=== PATIENT | male | born 1950 | race Caucasian/White ===

== ENCOUNTER 2017-07-04 12:59 | Day surgery (SDC) | payer OTHER ==
[~2017-07-04] VITALS: Ht 170.2 cm; Wt 81.8 kg
[~2017-07-04 12:59] MED LIST: ALLO100 PO; ASPI81EC PO; ATEN50 PO; Aspir 8181 MG; Bystolic2.5 MG; HYDCHL12.5 PO; LEVO750 PO; Norco 5-325 Ta1 EACH PO; OMEP20ER PO; Omeprazole20 M1; ROSU10TA; ROSU5 PO; TAMS.4ER
== END 2017-07-04 14:55 | disposition home or self-care (01) ==
LOC: ORSCSDS 12:59
PROVIDERS: Internal Medicine Gastroenterology
PROC: 0DBM8ZX Excision of Descending Colon, Via Natural or Artificial Opening Endoscopic, Diagnostic (ICD-10-PCS; principal; 2017-07-04 14:15)
PROC: 0DBN8ZX Excision of Sigmoid Colon, Via Natural or Artificial Opening Endoscopic, Diagnostic (ICD-10-PCS; principal; 2017-07-04 14:15)
DX: Z12.11 Encounter for screening for malignant neoplasm of colon (principal); D12.4 Benign neoplasm of descending colon; K63.5 Polyp of colon; K64.8 Other hemorrhoids; K57.30 Diverticulosis of large intestine without perforation or abscess without bleeding; Z86.010 Personal history of colon polyps; E78.2 Mixed hyperlipidemia; I10 Essential (primary) hypertension; Z87.891 Personal history of nicotine dependence; K21.9 Gastro-esophageal reflux disease without esophagitis; Z79.82 Long term (current) use of aspirin; Z79.899 Other long term (current) drug therapy
CPT/HCPCS: 88305

== ENCOUNTER 2024-12-06 12:00 | Observation (INO) | payer OTHER ==
[~2024-12-06] VITALS: Ht 170.2 cm; Wt 81.3 kg
[2024-12-06 16:01] LABS: BASOPHILS ABSOLUTE AUTO 0.05 K/mm3 (0.00-0.23); BASOPHILS PERCENT AUTO 1 % (0-2); EOSINOPHILS PERCENT AUTO 2 % (0-6); Hematocrit 48.4 % (37.0-53.0); Hemoglobin 16.5 g/dL (13.5-17.5); IMMATURE GRAN ABSOLUTE AUTO 0.03 K/mm3 (0.00-0.10); IMMATURE GRAN PERCENT AUTO 1 % (0-1); LYMPHOCYTES ABSOLUTE AUTO 0.95 K/mm3 (0.84-5.20); LYMPHOCYTES PERCENT AUTO 16 % (21-46); MONOCYTES ABSOLUTE AUTO 0.58 K/mm3 (0.16-1.47); MONOCYTES PERCENT AUTO 10 % (4-13); Mean Corpuscular HGB 30.2 pg (26.0-34.0); Mean Corpuscular HGB Conc 34.1 g/dL (31.5-36.5); Mean Corpuscular Volume 89 fL (80-100); NEUTROPHILS ABSOLUTE AUTO 4.12 K/mm3 (1.96-9.15); NEUTROPHILS PERCENT AUTO 71 % (41-73); Platelet Count 129 K/mm3 (150-400); RDW Coefficient Variation 13.8 % (11.7-14.2); RDW Standard Deviation 44.5 fL (35.1-46.3); Red Blood Cell Count 5.46 M/mm3 (4.30-5.90); White Blood Cell Count 5.83 K/mm3 (4.00-11.30)
[2024-12-06 16:02] LABS: Mean Platelet Volume 14.8 fL (9.1-12.4)
[2024-12-06 16:10] LABS: Albumin, Blood 3.4 g/dL (3.4-5.0); Albumin/Globulin Ratio 0.7 (0.8-1.8); Bilirubin, Total 1.8 mg/dL (0.1-1.0); Calcium, Blood 9.1 mg/dL (8.5-10.1); Creatinine, Blood 0.9 mg/dL (0.60-1.20); Globulin, Blood 4.8 g/dL (2.2-4.0); Potassium, Blood 3.8 mmol/L (3.5-5.5); Total Protein, Blood 8.2 g/dL (6.4-8.2)
[2024-12-06] MEDS ORDERED: ZOCOR20 MG PO (16:42)
[2024-12-06] MEDS ORDERED: Magnesium Hydroxide Conc 10 ML UDC PO PRN (17:10)
--- NOTE | 2024-12-06 17:47 | NUR ---
RECEIVED REPORT FROM DIRECT MAIL MANAGER; NOTICED THAT NO MEDICATIONS WERE GIVEN TO THE PATIENT FOR POSSIBLE TIA. PER REPORT PATIENT HASN'T RECEIVED ANY MEDICATIONS. CALL MADE TO DR. LAWRENCE TO INQUIRE ABOUT THE PATIENT NOT GETTING ASPIRIN SINCE BEING IN THE ER AND THAT IT IS ORDERED FOR 12/07/[address] LAWRENCE, PATIENT TO GET A DOSE NOW AND TO RESUME DAILY THEREAFTER; WILL PLACE ORDERS FOR ASPIRIN 325 MG NOW.
[2024-12-06] MEDS ORDERED: Aspirin 325 MG Tab PO ONE (17:50)
[2024-12-06 18:03] VITALS: BP 101/81
--- NOTE | 2024-12-06 18:35 | NUR ---
ADMISSION NOTE: PATIENT ARRIVED AT THE UNIT AT 1800 VIA WHEELCHAIR, WAS ABLE TO SELF TRANSFER ONTO THE BED WITHOUT DIFFICULTY. PATIENT SETTLED IN ROOM, ASSESSED, AND HAD PT CHANGE INTO HOSPITAL GOWN. AWAITING TELE. PATIENT A&OX4/INDEPENDENT;DENIES ANY NUMBNESS/WEAKNESS IN EXTREMITIES. PATIENT GIVEN ASPIRIN 325 MG; CALL MADE TO DR. LAWRENCE TO OKAY HOME MED SIMVASTATIN VERSUS SUB LIPITOR DUE TO CAUSING JOINT PAIN IN THE PAST. OKAY TO PLACE HOME MED ORDER. PATIENT'S STACY WILL BRING. PATIENT IN BED, ALERT, CALL LIGHT WITHIN REACH, NO SIGNS OR SYMPTOMS OF DISTRESS, PLAN OF CARE ONGOING; MRI HEAD AND ECHO PENDING. RESULTS FROM CAROTID US PENDING; COMPLETED PRIOR TO COMING UP TO UNIT PER PATIENT.
[2024-12-06 19:54] VITALS: BP 158/87
[2024-12-06] MEDS ORDERED: ALLO100 PO (20:39)
[2024-12-06] MEDS ORDERED: Atorvastatin 10 MG Tab PO SCH (21:00)
[2024-12-06] MEDS ORDERED: SIMVASTATIN 10 MG TABLET PO SCH (21:00)
[2024-12-06 23:48] VITALS: BP 125/69
[2024-12-07 04:21] VITALS: BP 131/74
[2024-12-07] MEDS ORDERED: Omeprazole 20 MG CapCR PO SCH (06:00)
--- NOTE | 2024-12-07 06:26 | NUR ---
SHIFT SUMMARY: Pt is admitted for HX of CVA and is a full code. Is alert and able to make needs known. ADLs have been IND. denies pain or discomfort when asked. telly noted sinus in the 50s with no events. No SX of CVA noted after coming to the floor. Was reported by day shift nurse that they had some numbness in the hands by the time they came to the floor. During report PT stated the numbness was almost gone. And when asked later in the shift he stated it was gone. No other issues were reported.
[2024-12-07 06:36] LABS: CHOL/HDL RATIO 2.6; Cholesterol 163 mg/dL (50-200); HDL Cholesterol 62 mg/dL (>39); LDL/HDL RATIO 1.3; Low Density Lipoprotein Chol 79 mg/dL (0-110); Triglycerides 108 mg/dL (30-160); Very Low Density Lipoprot Chol 21 mg/dL (6-32)
[2024-12-07 07:17] VITALS: BP 128/77
[2024-12-07] MEDS ORDERED: Aspirin 325 MG Tab PO SCH (09:00)
[2024-12-07] MEDS ORDERED: HydroCHLOROthiazide 25 mg Tab PO SCH (09:00)
[2024-12-07 15:03] VITALS: BP 140/89
--- NOTE | 2024-12-07 15:54 | NUR ---
ASSUMED CARE OF PT A/O X 4 VERY PLEASENT, REPORT ALL NUERO SYMPTOMS GONE. MRI ORDER FOR THIS MORNING, PT REMAINS IND IN ROOM AND ABLE TO MAKE NEEDS KNOWN.
--- NOTE | 2024-12-07 15:55 | NUR ---
0930 PT TO MRI AND BACK TARA WELL AND HAD NO ISSUES. AWAITNG ECHO FOR POSSIBLE DISCHARGE..
--- NOTE | 2024-12-07 15:56 | NUR ---
1520 ECHO BEING DONE, NO CHANGE IN CONDITION AND IS HOPING TO GO HOME IF ECHO IS READ. WILL CONT TO [facility] , NO CHASNGE IN CONDITION.
[2024-12-07] MEDS ORDERED: Clopidogrel Bisulfate 75 MG Tab PO SCH (17:00)
--- NOTE | 2024-12-07 17:49 | NUR ---
MRI RESULTS BACK, MD IN TO SPEAK WITH PT ABOUT RESULTS AND PT WILL BE STAYING THE NIGHT FOR ZYOPATCH AND ECHO READING. PT OK WITH STAYING HAS CALL LIGHT WITHIN REACH AND ABLE TO MAKE NEEDS KNOW.
[2024-12-07 19:30] VITALS: BP 158/92
[2024-12-08 03:13] VITALS: BP 140/85
[2024-12-08 07:23] VITALS: BP 144/84
[2024-12-08 15:00] VITALS: BP 133/77
--- NOTE | 2024-12-08 17:32 | NUR ---
ASSUMED CARE OF PT PT DOING GREAT TODAY PER PT, A/O X4 AND WAS EXPECTING TO GO HOME TODAY BUT WHEN SPOKE WITH DR RAMIRES PT ZYOPATCH IS UNABLE TO BE APPLIED TODAY DUE TO NOT BEING OPEN. PT GIVEN OPTION TO DISCHARGE BUT IS WILLING TO STAY UNTIL TUESDAY WHEN ZYOPATCH WILL BE AVAILABLE./ OTHERWISE WDUNEVENTFUL DAY FOR PT AND WAS MOVED TO 310.
--- NOTE | 2024-12-08 17:57 | NUR ---
ASSUMPTION OF CARE NOTE: RECEIVED REPORTS FROM GEN CALZADA. PATIENT ARRIVES TO ROOM AT 1719 FROM RM 350. ASSUME CARE OF PATIENT. PATIENT ORIENTATED TO ROOM AND CALL SYSTEM. PATIENT PROVIDED c FRESH ICE WATER. PATIENT A/OX4, PLEASANT AND COOPERATIVE c CARE. PATIENT DENIES CP/PRESSURE, SOB, N/V AND DIZZINESS. PATIENT INDEPENDENT IN ROOM AND CALLS APPROPRIATELY. CALL LIGHT IN REACH.
[2024-12-08 20:05] VITALS: BP 148/78
[2024-12-09 01:09] VITALS: BP 131/78
--- NOTE | 2024-12-09 05:33 | NUR ---
SHIFT SUMMARY NOC PT A/O X 4. NO ACUTE CHANGES TO REPORT. VSS. PT REMAINS ASYMPTOMTIC FROM RECENT CVA. PT IS AWAITING ZIO PATCH PLACEMENT FOR DISCHARGE WHICH MIGHT NOT BE UNTIL TUESDAY. PT ON TELE SINUS RHYTHM IN 60'S. PT CURRENTLY RESTING WITH BED IN LOWEST POSITION, AND CALL LIGHT WITHIN REACH.
[2024-12-09 05:39] VITALS: BP 138/78
[2024-12-09 07:51] VITALS: BP 135/82
[2024-12-09 11:56] VITALS: BP 142/80
--- NOTE | 2024-12-09 16:24 | NUR ---
SHIFT SUMMARY: PATIENT HAS HAD NO CHANGES THIS SHIFT. PATIENT A/OX4, PLEASANT AND COOPERATIVE c CARE. PATIENT DENIES CP/PRESSURE, SOB, N/V AND DIZZINESS. PATIENT STILL ON TELE, SR HR IN THE 70'S BPM c BBB AND 1ST DHB. PATIENT HAS GREAT APPETITE, CONTINENT OF BAB, AMBULATES TO BATHROOM INDEPENDENTLY. PATIENT AMBULATED IN HALLWAY X1 ACCOMPANIED BY SPOUSE. PATIENT RECEIVED SCHEDULED MEDS PER EMAR. VITAL SIGNS REVIEWED. PATIENT AWAITING ZIO PATCH PLACEMENT TO DISCHARGE HOME. BED IN LOWEST POSITION c CALL LIGHT IN REACH.
[2024-12-09 16:34] VITALS: BP 154/89
[2024-12-09 19:19] VITALS: BP 131/84
[2024-12-10 00:44] VITALS: BP 137/83
[2024-12-10 05:06] VITALS: BP 126/73
--- NOTE | 2024-12-10 05:09 | NUR ---
SHIFT SUMMARY NOC PT A/O X 4. PLEASANT AND COOPERATIVE WTIH CARE. VSS. NO ACUTE CHANGES TO REPORT. ON TELE SINUS RHYTHM/BBB/1DHB IN 60'S. PT AWAITING ZIO PATCH PLACEMENT TODAY SO THAT THEY CAN DISCHARGE HOME. PT CURRENTLY RESTING WITH BED IN LOWEST POSITION, AND CALL LIGHT WITHIN REACH.
[2024-12-10 07:28] VITALS: BP 128/74
--- NOTE | 2024-12-10 08:24 | NUR ---
Pt sitting up in bed eating breakfast, a/ox4, pleasant and coopertive with care, follows commands well, denies pain, reports all symptoms have resolved, lungs are clear t/o, resp even and unlabored, no cough noted, hrr, tele in place running sb to sr with bbb, in high 50's, no edema noted, piv to lfa site is clear and patent, btx4, abd flat soft nontender, voids without diff, maew, lead java j2ee developer =, dpfe=, puneet, call light in reach. waiting on zio patch to be placed prior to discharge.
[2024-12-10] MEDS ORDERED: PANT20 PO (10:51)
[2024-12-10] MEDS ORDERED: CLOP75 PO (10:52)
--- NOTE | 2024-12-10 11:21 | NUR ---
pt has been discharged to home, he had zio patch placed, piv removed intact, went over discharge instructions with him and spouce, they verbalized understanding, pt requested to ambulate out, fabrication specialist walked and spouce to door.
== END 2024-12-10 11:12 | disposition home or self-care (01) ==
LOC: ER 12:00 → MEDS 17:07
PROVIDERS: Student in an Organized Health Care Education/Training Program; ADMIT Internal Medicine
DX: I63.89 Other cerebral infarction (principal); I10 Essential (primary) hypertension; G47.33 Obstructive sleep apnea (adult) (pediatric); N40.0 Benign prostatic hyperplasia without lower urinary tract symptoms; E78.5 Hyperlipidemia, unspecified; Z79.82 Long term (current) use of aspirin; Z79.899 Other long term (current) drug therapy
CPT/HCPCS: 36415; 70450; 70551; 80053; 80061; 85025; 93005; 93010; 93246; 93306; 93880; 99285-25; A9270; G0378

== ENCOUNTER 2024-12-14 16:23 | Emergency (ER) | payer OTHER ==
[~2024-12-14] VITALS: Ht 170.2 cm; Wt 79.8 kg
[~2024-12-14 16:23] MED LIST changes: +CLOP75 PO; +PANT20 PO; +ZOCOR20 MG PO
[2024-12-14 16:55] LABS: BASOPHILS ABSOLUTE AUTO 0.04 K/mm3 (0.00-0.23); BASOPHILS PERCENT AUTO 1 % (0-2); EOSINOPHILS ABSOLUTE AUTO 0.12 K/mm3 (0.00-0.68); EOSINOPHILS PERCENT AUTO 2 % (0-6); Hematocrit 49.5 % (37.0-53.0); Hemoglobin 16.8 g/dL (13.5-17.5); IMMATURE GRAN ABSOLUTE AUTO 0.03 K/mm3 (0.00-0.10); IMMATURE GRAN PERCENT AUTO 1 % (0-1); LYMPHOCYTES ABSOLUTE AUTO 1.00 K/mm3 (0.84-5.20); LYMPHOCYTES PERCENT AUTO 17 % (21-46); MONOCYTES ABSOLUTE AUTO 0.74 K/mm3 (0.16-1.47); MONOCYTES PERCENT AUTO 12 % (4-13); Mean Corpuscular HGB Conc 33.9 g/dL (31.5-36.5); Mean Corpuscular Volume 88 fL (80-100); NEUTROPHILS ABSOLUTE AUTO 4.13 K/mm3 (1.96-9.15); NEUTROPHILS PERCENT AUTO 68 % (41-73); NRBC ABSOLUTE 0.00 K/mm3 (0.00-0.02); NRBC Auto 0.0 /100 WBC (0.0-0.2); Platelet Count 147 K/mm3 (150-400); RDW Coefficient Variation 13.4 % (11.7-14.2); RDW Standard Deviation 43.2 fL (35.1-46.3)
[2024-12-14 17:14] LABS: Alanine Aminotransfer (ALT/SGP 32.0 U/L (12-78); Albumin, Blood 3.6 g/dL (3.4-5.0); Albumin/Globulin Ratio 0.8 (0.8-1.8); Anion Gap 8.0 mmol/L (3-11); Aspartate Aminotrans (AST/SGOT 22.0 U/L (12-37); Bilirubin, Total 1.5 mg/dL (0.1-1.0); Blood Urea Nitrogen 17.0 mg/dL (8-24); CO2, Blood 27.0 mmol/L (21-32); Calcium, Blood 9.4 mg/dL (8.5-10.1); Chloride, Blood 106.0 mmol/L (98-108); Creatinine, Blood 0.93 mg/dL (0.60-1.20); Globulin, Blood 4.7 g/dL (2.2-4.0); Glucose, Blood 104.0 mg/dL (70-99); Potassium, Blood 3.6 mmol/L (3.5-5.5); Sodium, Blood 137.0 mmol/L (136-145); Total Protein, Blood 8.3 g/dL (6.4-8.2)
[2024-12-14 18:11] LABS: Source, Urine Clean Catch
[2024-12-14 18:18] VITALS: BP 140/95
[2024-12-14] MEDS ORDERED: Aspir 8181 MG PO (18:18)
[2024-12-14 18:24] LABS: Bilirubin, Urine Neg (Neg); Color, Urine Red (P-Yellow); Glucose Qualitative, Urine 1+ (Neg); Ketones, Urine 1+ (Neg); Leukocyte Esterase, Urine 3+ (Neg); Protein, Urine 4+ (Neg); Specific Gravity, Urine 1.010 (1.003-1.022); Urobilinogen, Urine NORM (Normal)
[2024-12-14 18:32] LABS: Red Blood Cells, Urine TNTC /hpf (0-2); White Blood Cells, Urine TNTC /hpf (0-5)
[2024-12-14] MEDS ORDERED: CEPH500 PO (18:52)
[2024-12-14] MEDS ORDERED: Lidocaine 2% Jelly Uro-Jet UR ONE (19:10)
[2024-12-14 20:18] LABS: Source, Urine Foley catheter
[2024-12-14 20:21] LABS: Bilirubin, Urine Neg (Neg); Color, Urine Brown (P-Yellow); Glucose Qualitative, Urine Neg (Neg); Ketones, Urine 1+ (Neg); Leukocyte Esterase, Urine Neg (Neg); Protein, Urine 4+ (Neg); Specific Gravity, Urine 1.015 (1.003-1.022); Urobilinogen, Urine NORM (Normal)
[2024-12-14 20:31] LABS: Red Blood Cells, Urine TNTC /hpf (0-2)
== END 2024-12-14 20:07 | disposition home or self-care (01) ==
LOC: ER 16:23
PROVIDERS: Emergency Medicine; Student in an Organized Health Care Education/Training Program
DX: N32.89 Other specified disorders of bladder (principal); N39.0 Urinary tract infection, site not specified; R31.9 Hematuria, unspecified; E78.5 Hyperlipidemia, unspecified; I10 Essential (primary) hypertension; K21.9 Gastro-esophageal reflux disease without esophagitis; Z87.891 Personal history of nicotine dependence; Z79.82 Long term (current) use of aspirin; Z79.01 Long term (current) use of anticoagulants; Z79.899 Other long term (current) drug therapy
CPT/HCPCS: 51702; 51798; 74177; 80053; 81001; 83690; 85025; 87086; 99284-25; A9270; Q9967

== ENCOUNTER 2024-12-14 21:15 | Emergency (ER) | payer OTHER ==
[~2024-12-14] VITALS: Ht 170.2 cm; Wt 79.8 kg
[~2024-12-14 21:15] MED LIST changes: +Aspir 8181 MG PO; +CEPH500 PO
[2024-12-14 21:19] VITALS: BP 166/114
== END 2024-12-14 22:10 | disposition home or self-care (01) ==
LOC: ER 21:15
DX: T83.091A Other mechanical complication of indwelling urethral catheter, initial encounter (principal); K21.9 Gastro-esophageal reflux disease without esophagitis; E78.5 Hyperlipidemia, unspecified; I10 Essential (primary) hypertension; Z87.891 Personal history of nicotine dependence; Z79.82 Long term (current) use of aspirin; Z79.899 Other long term (current) drug therapy
CPT/HCPCS: 51700; 99283

== ENCOUNTER 2024-12-15 18:55 | Emergency (ER) | payer OTHER ==
[~2024-12-15] VITALS: Ht 170.2 cm; Wt 79.8 kg
[2024-12-15 22:11] VITALS: BP 170/87
== END 2024-12-15 22:33 | disposition home or self-care (01) ==
LOC: ER 18:55
DX: T83.091A Other mechanical complication of indwelling urethral catheter, initial encounter (principal); K21.9 Gastro-esophageal reflux disease without esophagitis; E78.5 Hyperlipidemia, unspecified; I10 Essential (primary) hypertension; Z87.891 Personal history of nicotine dependence; Z79.02 Long term (current) use of antithrombotics/antiplatelets; Z79.82 Long term (current) use of aspirin; Z79.899 Other long term (current) drug therapy
CPT/HCPCS: 51798; 99283

== ENCOUNTER 2024-12-24 23:14 | Emergency (ER) | payer OTHER ==
[~2024-12-24] VITALS: Ht 182.9 cm; Wt 95.2 kg
[2024-12-25 00:46] LABS: Source, Urine Clean Catch
[2024-12-25 00:52] LABS: Glucose Qualitative, Urine Neg (Neg); Ketones, Urine 4+ (Neg); Leukocyte Esterase, Urine 3+ (Neg); Protein, Urine 4+ (Neg); Specific Gravity, Urine 1.025 (1.003-1.022); Urobilinogen, Urine 1+ (Normal)
[2024-12-25 00:59] LABS: Bilirubin, Urine 1+ (Neg); Color, Urine Amber (P-Yellow); Red Blood Cells, Urine 25-50 /hpf (0-2); White Blood Cells, Urine TNTC /hpf (0-5)
[2024-12-25 01:25] VITALS: BP 157/80
== END 2024-12-25 01:21 | disposition home or self-care (01) ==
LOC: ER 23:14
PROVIDERS: Student in an Organized Health Care Education/Training Program
DX: R33.9 Retention of urine, unspecified (principal); N39.0 Urinary tract infection, site not specified; U07.1 COVID-19; E78.5 Hyperlipidemia, unspecified; I10 Essential (primary) hypertension; K21.9 Gastro-esophageal reflux disease without esophagitis; Z87.891 Personal history of nicotine dependence; Z79.82 Long term (current) use of aspirin; Z79.02 Long term (current) use of antithrombotics/antiplatelets; Z79.899 Other long term (current) drug therapy; Z59.89 Other problems related to housing and economic circumstances
CPT/HCPCS: 51702; 81001; 87086; 99283

== ENCOUNTER → 2025-01-15 | Outpatient (CLI) | payer OTHER | LOC: LAB 17:13 → LAB SHORT 17:13 | DX: R31.9 Hematuria, unspecified (principal) | CPT/HCPCS: 88108 ==